=== PATIENT | male | born 1960 | race Caucasian/White ===

== ENCOUNTER 2016-09-16 12:36 | Inpatient (IN) | payer MEDICAID ==
[~2016-09-16] VITALS: Ht 188 cm; Wt 71.8 kg
[2016-09-16 13:57] LABS: Basophils # (auto) 0 uL; Eosinophils # (auto) 0.2 uL; Eosinophils % (auto) 1.2 % (0.0-7.0); Hematocrit 53.1 % (41.0-53.0); Hemoglobin 17.3 g/dL (13.5-17.5); Lymphocytes # (auto) 1.3 uL; Lymphocytes % (auto) 8.6 % (10.0-50.0); Mean Corpuscular Hemoglobin 31.3 pg (28.0-32.0); Mean Corpuscular Hgb Conc. 32.5 g/dL (32.0-36.0); Mean Corpuscular Volume 96.4 fL (80.0-100.0); Monocytes # (auto) 1.3 uL; Monocytes % (auto) 8.9 % (0.0-12.0); Neutrophils % (auto) 81.3 % (37.0-80.0); Platelet Count (auto) 231 10^3/uL (140-450); Red Cell Distribution Width 14.1 % (11.6-16.0); White Blood Cell 14.7 10^3/uL (4.4-10.8)
[2016-09-16 14:21] LABS: Albumin 3.3 g/dL (3.4-5.0); BUN/Creatinine Ratio 12.3; Bilirubin, Total 0.5 mg/dL (0.2-1.0); Calcium 9.3 mg/dL (8.5-10.1); Potassium 5.2 mmol/L (3.5-5.1); Total Protein 8.5 g/dL (6.4-8.2)
[2016-09-16 15:26] LABS: Urine Bilirubin Negative (Negative); Urine Color Yellow (Yellow); Urine Glucose Normal (Normal); Urine Ketone Negative (Negative); Urine Nitrite Negative (Negative); Urine RBC 4 /hpf (0 - 3); Urine Urobilinogen Normal (Negative); Urine pH 5.5 (5.0-8.0)
[2016-09-16 15:31] LABS: Urine Blood 1+ /uL (Negative)
[2016-09-16] MEDS ORDERED: SODIUM CHLORIDE 0.9% 1,000 ML IV ONE (16:05)
[2016-09-16] MEDS ORDERED: SODIUM CHLORIDE 0.9% 250 ML IV ONE (16:05)
[2016-09-16] MEDS ORDERED: KETOROLAC TROMETH 30 MG/ML 1ML VIAL IV ONE (16:15)
[2016-09-16] MEDS ORDERED: ONDANSETRON HCL 4 MG/2 ML VIAL IV ONE (16:15)
[2016-09-16] MEDS ORDERED: PIPERACILLIN-TAZOB 3.375GM 100 ML IV ONE (16:15)
[2016-09-16] MEDS ORDERED: ACETAMINOPHEN 325 MG TAB PO PRN (17:00)
[2016-09-16] MEDS ORDERED: SODIUM POLYSTYRENE SULF 15GM/60ML SUSP PO ONE (17:00)
[2016-09-16] MEDS ORDERED: ONDANSETRON HCL 4 MG/2 ML VIAL IV PRN (17:00)
[2016-09-16] MEDS ORDERED: NITROGLYCERIN 0.4 MG SL TAB SL PRN (17:00)
[2016-09-16] MEDS ORDERED: MORPHINE SULF INJ 2 MG/ML SYRINGE 1ML IV PRN (17:00)
[2016-09-16] MEDS ORDERED: cloNIDine HCL 0.1 MG TAB PO PRN (17:00)
[2016-09-16] MEDS ORDERED: LISINOPRIL 5 MG TAB PO ONE (17:15)
[2016-09-16] MEDS ORDERED: MULTIPLE VITAMIN TAB PO ONE (17:15)
[2016-09-16] MEDS: MORPHINE SULF INJ 2 MG/ML SYRINGE 1ML IV PRN (18:50)
[2016-09-16 19:47] VITALS: BP 150/92
[2016-09-16 20:00] VITALS: BP 150/92
[2016-09-16] MEDS: SODIUM CHLORIDE 0.9% 1,000 ML IV SCH (20:15)
[2016-09-16] MEDS: LINEZOLID 600MG/300ML 300 ML IV SCH (20:15)
[2016-09-16] MEDS: BOOST PLUS 8 ounce PO SCH (20:15)
[2016-09-16] MEDS ORDERED: cefTRIAXone 1GM/50ML D5W 50 ML IV ONE (21:00)
[2016-09-16 21:09] LABS: INR 1.14 (0.9-1.15); Prothrombin Time 12.3 sec (9.37-12.3)
[2016-09-16 21:11] LABS: BUN/Creatinine Ratio 12.7; Calcium 8.2 mg/dL (8.5-10.1); Potassium 4.8 mmol/L (3.5-5.1)
[2016-09-16] MEDS: CARVEDILOL 3.125 MG TAB PO SCH (21:47)
[2016-09-16] MEDS ORDERED: FAMOTIDINE 20 MG TAB PO SCH (22:00)
[2016-09-17] MEDS: MORPHINE SULF INJ 2 MG/ML SYRINGE 1ML IV PRN ×3 (01:00→08:59)
[2016-09-17] MEDS: HYDROcodone-ACET 5/325MG TAB PO PRN ×3 (03:11→21:55)
[2016-09-17] MEDS: LINEZOLID 600MG/300ML 300 ML IV SCH ×2 (05:14→18:15)
[2016-09-17 05:47] VITALS: BP 125/72
[2016-09-17 05:57] LABS: Basophils # (auto) 0.1 uL; Basophils % (auto) 0.4 % (0.0-2.0); Eosinophils # (auto) 0.2 uL; Hematocrit 44.7 % (41.0-53.0); Hemoglobin 14.6 g/dL (13.5-17.5); Lymphocytes % (auto) 15.9 % (10.0-50.0); Mean Corpuscular Hemoglobin 31.4 pg (28.0-32.0); Mean Corpuscular Hgb Conc. 32.5 g/dL (32.0-36.0); Mean Corpuscular Volume 96.5 fL (80.0-100.0); Mean Platelet Volume 7.9 fL (7.4-10.4); Monocytes # (auto) 1.5 uL; Monocytes % (auto) 12.1 % (0.0-12.0); Neutrophils # (auto) 8.6 uL; Neutrophils % (auto) 69.6 % (37.0-80.0); Platelet Count (auto) 218 10^3/uL (140-450); Red Cell Distribution Width 13.9 % (11.6-16.0); White Blood Cell 12.3 10^3/uL (4.4-10.8)
[2016-09-17 06:31] LABS: Albumin 2.5 g/dL (3.4-5.0); Bilirubin, Total 0.4 mg/dL (0.2-1.0); Potassium 4.2 mmol/L (3.5-5.1); Total Protein 6.3 g/dL (6.4-8.2)
[2016-09-17] MEDS: BOOST PLUS 8 ounce PO SCH ×3 (08:00→18:04)
[2016-09-17 08:30] VITALS: BP 149/90
[2016-09-17] MEDS: cefTRIAXone 1GM/50ML D5W 50 ML IV SCH (08:59)
[2016-09-17] MEDS: FAMOTIDINE 20 MG TAB PO SCH (09:00)
[2016-09-17] MEDS: CARVEDILOL 3.125 MG TAB PO SCH ×2 (09:00→21:56)
[2016-09-17] MEDS: MULTIPLE VITAMIN TAB PO SCH (09:00)
[2016-09-17] MEDS: LISINOPRIL 5 MG TAB PO SCH (09:00)
[2016-09-17] MEDS: SODIUM CHLORIDE 0.9% 1,000 ML IV SCH ×2 (09:45→18:00)
[2016-09-17 12:30] VITALS: BP 161/112
[2016-09-17] MEDS: HYDROmorphone HCL 2 MG/ML VL IV PRN ×2 (13:25→19:24)
[2016-09-17 17:46] VITALS: BP 150/90
[2016-09-17] MEDS ORDERED: LACTULOSE 20Gm/30ML SOLN PO ONE (18:00)
[2016-09-17] MEDS ORDERED: LACTULOSE 20Gm/30ML SOLN ONE (18:06)
[2016-09-17 20:00] VITALS: BP 138/82
[2016-09-17] MEDS: DOCUSATE SOD 100 MG CAP PO PRN (21:55)
[2016-09-17] MEDS: TEMAZEPAM 15 MG CAP PO PRN (21:58)
[2016-09-17 22:00] VITALS: BP 138/82
[2016-09-18] VITALS (7 sets, daily range): BP systolic 141–158; BP diastolic 81–91
[2016-09-18] MEDS: HYDROmorphone HCL 2 MG/ML VL IV PRN ×4 (01:47→14:51)
[2016-09-18] MEDS: SODIUM CHLORIDE 0.9% 1,000 ML IV SCH ×2 (04:03→14:51)
[2016-09-18] MEDS: HYDROcodone-ACET 5/325MG TAB PO PRN ×3 (04:08→17:54)
[2016-09-18] MEDS: LINEZOLID 600MG/300ML 300 ML IV SCH ×2 (06:08→18:32)
[2016-09-18 06:13] LABS: Basophils # (auto) 0 uL; Basophils % (auto) 0.4 % (0.0-2.0); DEFINITIVE VIEW TRANSMISSION; Eosinophils # (auto) 0.3 uL; Eosinophils % (auto) 2.3 % (0.0-7.0); Hematocrit 46.7 % (41.0-53.0); Hemoglobin 15.3 g/dL (13.5-17.5); Lymphocytes # (auto) 1.6 uL; Lymphocytes % (auto) 13.6 % (10.0-50.0); Mean Corpuscular Hemoglobin 31.5 pg (28.0-32.0); Mean Corpuscular Hgb Conc. 32.8 g/dL (32.0-36.0); Mean Corpuscular Volume 96.3 fL (80.0-100.0); Mean Platelet Volume 7.7 fL (7.4-10.4); Monocytes # (auto) 1.6 uL; Monocytes % (auto) 13.9 % (0.0-12.0); Neutrophils # (auto) 8.2 uL; Neutrophils % (auto) 69.8 % (37.0-80.0); Platelet Count (auto) 229 10^3/uL (140-450); White Blood Cell 11.8 10^3/uL (4.4-10.8)
[2016-09-18 06:40] LABS: Albumin 2.6 g/dL (3.4-5.0); BUN/Creatinine Ratio 12.4; Bilirubin, Total 0.3 mg/dL (0.2-1.0); Calcium 8.8 mg/dL (8.5-10.1); Potassium 4.4 mmol/L (3.5-5.1); Total Protein 6.9 g/dL (6.4-8.2)
[2016-09-18] MEDS: BOOST PLUS 8 ounce PO SCH ×3 (09:08→18:32)
[2016-09-18] MEDS: cefTRIAXone 1GM/50ML D5W 50 ML IV SCH (09:08)
[2016-09-18] MEDS: FAMOTIDINE 20 MG TAB PO SCH (10:28)
[2016-09-18] MEDS: MULTIPLE VITAMIN TAB PO SCH (10:28)
[2016-09-18] MEDS: CARVEDILOL 3.125 MG TAB PO SCH ×2 (10:29→22:02)
[2016-09-18] MEDS: LISINOPRIL 5 MG TAB PO SCH (10:29)
[2016-09-18] MEDS ORDERED: BISACODYL 10 MG RECT SUPP PR ONE (13:15)
[2016-09-18] MEDS ORDERED: SODIUM CHLORIDE 0.9% 1,000 ML IV SCH (17:05)
[2016-09-18] MEDS: DOCUSATE SOD 100 MG CAP PO PRN (22:02)
[2016-09-18] MEDS: TEMAZEPAM 15 MG CAP PO PRN (22:02)
[2016-09-19 05:00] VITALS: BP_SYST 133; BP_SYST 135; BP_DIAS 75; BP_DIAS 81
[2016-09-19] MEDS: LINEZOLID 600MG/300ML 300 ML IV SCH (05:53)
[2016-09-19 06:23] LABS: Basophils # (auto) 0 uL; Basophils % (auto) 0.5 % (0.0-2.0); Eosinophils # (auto) 0.3 uL; Eosinophils % (auto) 2.8 % (0.0-7.0); Hematocrit 42.8 % (41.0-53.0); Hemoglobin 14.3 g/dL (13.5-17.5); Lymphocytes # (auto) 1.8 uL; Lymphocytes % (auto) 18.5 % (10.0-50.0); Mean Corpuscular Hemoglobin 31.9 pg (28.0-32.0); Mean Corpuscular Hgb Conc. 33.4 g/dL (32.0-36.0); Mean Corpuscular Volume 95.5 fL (80.0-100.0); Mean Platelet Volume 7.7 fL (7.4-10.4); Monocytes # (auto) 1.1 uL; Monocytes % (auto) 11.5 % (0.0-12.0); Neutrophils # (auto) 6.5 uL; Neutrophils % (auto) 66.7 % (37.0-80.0); Platelet Count (auto) 241 10^3/uL (140-450); Red Cell Distribution Width 13.6 % (11.6-16.0); White Blood Cell 9.8 10^3/uL (4.4-10.8)
[2016-09-19 07:02] LABS: BUN/Creatinine Ratio 13.8; Calcium 8.6 mg/dL (8.5-10.1); Potassium 4.8 mmol/L (3.5-5.1)
[2016-09-19 08:00] VITALS: BP 130/75
[2016-09-19 08:15] VITALS: BP 130/75
[2016-09-19] MEDS: FAMOTIDINE 20 MG TAB PO SCH (09:38)
[2016-09-19] MEDS: MULTIPLE VITAMIN TAB PO SCH (09:38)
[2016-09-19] MEDS: CARVEDILOL 3.125 MG TAB PO SCH (09:38)
[2016-09-19] MEDS: LISINOPRIL 5 MG TAB PO SCH (09:39)
[2016-09-19] MEDS: cefTRIAXone 1GM/50ML D5W 50 ML IV SCH (09:39)
[2016-09-19] MEDS: BOOST PLUS 8 ounce PO SCH ×2 (09:39→15:20)
[2016-09-19 12:30] VITALS: BP 131/82
[2016-09-19 13:29] VITALS: BP 131/82
[2016-09-19] MEDS: SODIUM CHLORIDE 0.9% 1,000 ML IV SCH ×2 (15:13)
== END 2016-09-19 15:42 | disposition home or self-care (01) | DRG 720 ==
LOC: ER 12:42 → TELE 12:43 → EDUNIT# 12:43 → TELE-WESTW 19:51
PROVIDERS: ADMIT Internal Medicine; ATTEND Family Medicine
DX: A41.9 Sepsis, unspecified organism (principal); N17.9 Acute kidney failure, unspecified; N18.4 Chronic kidney disease, stage 4 (severe); I13.0 Hypertensive heart and chronic kidney disease with heart failure and stage 1 through stage 4 chronic kidney disease, or unspecified chronic kidney disease; I50.20 Unspecified systolic (congestive) heart failure; E44.1 Mild protein-calorie malnutrition; M48.56XA Collapsed vertebra, not elsewhere classified, lumbar region, initial encounter for fracture; Q61.3 Polycystic kidney, unspecified; F17.210 Nicotine dependence, cigarettes, uncomplicated; K76.89 Other specified diseases of liver; K57.90 Diverticulosis of intestine, part unspecified, without perforation or abscess without bleeding; E87.5 Hyperkalemia; K59.00 Constipation, unspecified; N13.2 Hydronephrosis with renal and ureteral calculous obstruction; Z84.1 Family history of disorders of kidney and ureter; Z87.442 Personal history of urinary calculi; Z68.20 Body mass index [BMI] 20.0-20.9, adult
CPT/HCPCS: 36415; 71010; 74176; 76775; 80048; 80053; 81001; 83605; 85025; 85610; 87040; 87086; 96361; 96365; 96375; J0696; J1885; J2405; J2543

== ENCOUNTER 2018-10-21 09:55 | Emergency (ER) | payer MEDICAID ==
[~2018-10-21] VITALS: Ht 188 cm; Wt 74.8 kg
[2018-10-21 10:45] LABS: Basophils # (auto) 0 uL; Basophils % (auto) 0.3 % (0.0-2.0); Eosinophils # (auto) 0.3 uL; Eosinophils % (auto) 2.3 % (0.0-7.0); Hematocrit 41.9 % (41.0-53.0); Lymphocytes # (auto) 1.6 uL; Lymphocytes % (auto) 13.5 % (10.0-50.0); Mean Corpuscular Hemoglobin 31.9 pg (28.0-32.0); Mean Corpuscular Hgb Conc. 33.4 g/dL (32.0-36.0); Mean Corpuscular Volume 95.6 fL (80.0-100.0); Monocytes # (auto) 1.2 uL; Monocytes % (auto) 10.5 % (0.0-12.0); Neutrophils # (auto) 8.4 uL; Neutrophils % (auto) 73.4 % (37.0-80.0); Platelet Count (auto) 259 10^3/uL (140-450); Red Blood Cells 4.38 10^6/uL (4.5-5.90); Red Cell Distribution Width 14.5 % (11.8-14.3); White Blood Cell 11.5 10^3/uL (4.4-10.8)
[2018-10-21 10:53] LABS: Alanine Aminotransferase 28 U/L (16-61); Albumin 3.3 g/dL (3.4-5.0); Anion Gap 9 (5-15); Aspartate Aminotransferase 13 U/L (15-37); BUN/Creatinine Ratio 11.4; Blood Urea Nitrogen 67 mg/dL (7-18); Calcium 8.8 mg/dL (8.5-10.1); Carbon Dioxide 19 mmol/L (21-32); Chloride 111 mmol/L (98-107); GFR African American 13 mL/min; GFR Non-African American 11 mL/min; Glucose 88 mg/dL (74-106); Potassium 4.2 mmol/L (3.5-5.1); Sodium 139 mmol/L (136-145)
[2018-10-21 10:57] LABS: Alkaline Phosphatase 81 U/L (45-117); Bilirubin, Total 0.3 mg/dL (0.2-1.0)
[2018-10-21 11:22] VITALS: BP 188/99
[2018-10-21] MEDS ORDERED: cloNIDine HCL 0.1 MG TAB PO ONE (11:45)
== END 2018-10-21 12:34 | disposition home or self-care (01) ==
LOC: ER 09:55
DX: J40 Bronchitis, not specified as acute or chronic (principal); I12.9 Hypertensive chronic kidney disease with stage 1 through stage 4 chronic kidney disease, or unspecified chronic kidney disease; N18.9 Chronic kidney disease, unspecified; F17.210 Nicotine dependence, cigarettes, uncomplicated
CPT/HCPCS: 36415; 71046; 80053; 84484; 85025; 87040; 93005

== ENCOUNTER 2020-12-25 16:13 | Emergency (ER) | payer MEDICARE, MEDICAID ==
[~2020-12-25] VITALS: Ht 188 cm; Wt 72.6 kg
[2020-12-25 16:33] VITALS: BP 137/83
[2020-12-25] MEDS ORDERED: methylPREDNISolone SOD SUCC 125 MG/2 ML VL IM ONE (17:45)
[2020-12-25] MEDS ORDERED: cefTRIAXone SOD 1,000 MG VL IM ONE (17:45)
== END 2020-12-25 21:45 | disposition home or self-care (01) ==
LOC: ER 16:13
DX: H60.93 Unspecified otitis externa, bilateral (principal); L25.9 Unspecified contact dermatitis, unspecified cause; F17.210 Nicotine dependence, cigarettes, uncomplicated

== ENCOUNTER 2021-05-10 06:35 | Day surgery (SDC) | payer MEDICARE, MEDICAID ==
[2021-05-10] VITALS (8 sets, daily range): BP systolic 105–145; BP diastolic 65–89
[~2021-05-10] VITALS: Ht 188 cm; Wt 72.6 kg
[~2021-05-10 06:35] MED LIST: CLON0.1T PO
[2021-05-10] MEDS ORDERED: ANGIOMAX 250 MG VIAL IV ONE (07:29)
[2021-05-10] MEDS ORDERED: VERAPAMIL 2.5MG/ML INJ 2ML VIAL IV ONE (07:29)
[2021-05-10] MEDS ORDERED: HEPARIN SODIUM (PORCINE) 5000 UNITS/ML 1ML VIAL ONE (07:29)
[2021-05-10] MEDS ORDERED: IODIXANOL 320MG/ML 100ML BTL IV ONE (07:30)
[2021-05-10] MEDS ORDERED: MIDAZOLAM HCL 2MG/2ML 2ml VIAL (1mg/ml) ONE (07:30)
[2021-05-10] MEDS ORDERED: fentaNYL CITRATE 100 MCG/2 ML VL ONE (07:30)
[2021-05-10] MEDS ORDERED: LIDOCAINE 2%HCL (LOCAL ANESTH.) INJ 20ML MDV ONE (07:30)
[2021-05-10] MEDS ORDERED: SODIUM CHL 0.9% 0 ML ONE (07:31)
[2021-05-10] MEDS ORDERED: BUME1TAB3 PO (09:34)
[2021-05-10] MEDS ORDERED: LOSA-69 PO (09:34)
[2021-05-10] MEDS ORDERED: AMLO-489 PO ×2 (09:34)
[2021-05-10] MEDS ORDERED: CALC0.25 PO (09:34)
[2021-05-10] MEDS ORDERED: ALLO100T PO (09:34)
[2021-05-10] MEDS ORDERED: CLON0.2D6 PO (09:34)
[2021-05-10] MEDS ORDERED: SEVE800T8 PO (09:34)
== END 2021-05-10 10:55 | disposition home or self-care (01) ==
LOC: CATH 06:35
PROVIDERS: ATTEND Internal Medicine Cardiovascular Disease
DX: I42.8 Other cardiomyopathies (principal); I13.2 Hypertensive heart and chronic kidney disease with heart failure and with stage 5 chronic kidney disease, or end stage renal disease; I50.20 Unspecified systolic (congestive) heart failure; E11.22 Type 2 diabetes mellitus with diabetic chronic kidney disease; N18.6 End stage renal disease; Q61.3 Polycystic kidney, unspecified; I44.7 Left bundle-branch block, unspecified; F17.200 Nicotine dependence, unspecified, uncomplicated; Z20.822 Contact with and (suspected) exposure to COVID-19
CPT/HCPCS: 71045; 93458; C1769; C1894; J1644; J2250; J3010; Q9967; U0003; 99152

== ENCOUNTER 2023-09-27 23:27 | Emergency (ER) | payer MEDICARE, MEDICAID ==
[~2023-09-27] VITALS: Ht 188 cm; Wt 81.6 kg
[~2023-09-27 23:27] MED LIST changes: +ALLO100T PO; +AMLO1TAB22 PO; +BUME1TAB3 PO; -CLON0.1T PO; +CLON0.2D6 PO; +LOSA-534 PO; +SEVE800T8 PO
[2023-09-28 00:20] LABS: Basophils # (auto) 0.1 10 ^3/uL (0-0.2); Eosinophils # (auto) 0.4 10 ^3/uL (0-0.8); Lymphocytes # (auto) 1.5 10 ^3/uL (0.4-5.4); White Blood Cell 13.2 10^3/uL (4.4-10.8)
[2023-09-28 00:22] LABS: Basophils % (auto) 0.5 % (0.0-2.0); Eosinophils % (auto) 3.2 % (0.0-7.0); Lymphocytes % (auto) 11.5 % (10.0-50.0); Mean Corpuscular Hemoglobin 33.2 pg (28.0-32.0); Mean Corpuscular Hgb Conc. 32.6 g/dL (32.0-36.0); Mean Corpuscular Volume 101.9 fL (80.0-100.0); Monocytes # (auto) 1.4 10 ^3/uL (0-1.3); Monocytes % (auto) 10.8 % (0.0-12.0); Neutrophils # (auto) 9.8 10 ^3/uL (1.6-8.6); Nucleated Red Blood Cells % 0.1 %; Red Blood Cells 4.23 10^6/uL (4.5-5.90)
[2023-09-28 00:35] LABS: Alanine Aminotransferase 16 U/L (7-40); Albumin 4.3 g/dL (3.2-4.8); Alkaline Phosphatase 61 U/L (46-116); Anion Gap 9 (5-15); Aspartate Aminotransferase 8 U/L (13-40); BUN/Creatinine Ratio 4.3 (10.0-20.0); Bilirubin, Total 0.3 mg/dL (0.2-1.0); Blood Urea Nitrogen 43 mg/dL (9-23); Calcium 8.3 mg/dL (8.7-10.4); Carbon Dioxide 28 mmol/L (20-30); Chloride 101 mmol/L (98-107); Glucose 100 mg/dL (74-106); Potassium 4.6 mmol/L (3.5-5.1); Sodium 138 mmol/L (136-145); Total Protein 7.7 g/dL (5.7-8.2)
[2023-09-28 03:38] VITALS: BP 155/83; TEMP 99.3
[2023-09-28 03:40] VITALS: PULSE 75; RESP 26; O2SAT 97
== END 2023-09-28 04:12 | disposition home or self-care (01) ==
LOC: ER 23:27
DX: I12.0 Hypertensive chronic kidney disease with stage 5 chronic kidney disease or end stage renal disease (principal); N18.6 End stage renal disease; R05.9 Cough, unspecified; R06.02 Shortness of breath; F17.210 Nicotine dependence, cigarettes, uncomplicated; J44.9 Chronic obstructive pulmonary disease, unspecified
CPT/HCPCS: 36415; 71045; 80053; 84484; 85025; 93005